=== PATIENT | male | born 1970 | race Two or more races ===

== ENCOUNTER 2020-06-08 11:01 | Emergency (ER) | payer SELFPAY ==
--- NOTE | 2020-06-08 11:17 | ER Document Report ---
ED Medical Screen (RME) - General Chief Complaint: Alcohol Withdrawl Stated Complaint: ETOH WITHDRAWAL Time Seen by Provider: 06/08/20 11:12 Primary Care Provider: SHAHLA DE LEÓN [Primary Care Provider] - Follow up as needed Mode of Arrival: Ambulatory Information source: Patient Notes: 50-year-old male patient with alcoholism presenting to the emergency department with concern for all over body aches and vomiting. Patient and family member concerned he may be going through alcohol withdrawals. He last drank yesterday. He tried to having a beer this morning however he vomited it up. Patient has never been through alcohol withdrawal before however he has never tried to quit drinking until now. Patient reports he would like to quit drinking. Patient has never had a seizure. Patient is alert, oriented, no acute distress noted. I have greeted and performed a rapid initial assessment of this patient. A comprehensive ED assessment and evaluation of the patient, analysis of test results and completion of the medical decision making process will be conducted by additional ED providers. I have specifically instructed the patient or family members with the patient to immediately return to any nursing staff should anything change in the patient's condition or with their chief complaint. - Related Data Allergies/Adverse Reactions: No Known Allergies Allergy (Unverified 06/08/20 11:11) Physical Exam - Vital signs Vitals: Temp Pulse Resp BP Pulse Ox 98.7 F 96 20 111/82 97 06/08/20 11:11 06/08/20 11:11 06/08/20 11:11 06/08/20 11:11 06/08/20 11:11 Course - Vital Signs Vital signs: Temp Pulse Resp BP Pulse Ox 98.7 F 96 20 111/82 97 06/08/20 11:11 06/08/20 11:11 06/08/20 11:11 06/08/20 11:11 06/08/20 11:11 Doctor's Discharge - Discharge Referrals: SHAHLA DE LEÓN [Primary Care Provider] - Follow up as needed
[2020-06-08 11:42] LABS: ABSOLUTE LYMPHOCYTES (AUTO) 0.9 10^3/uL (0.5-4.7); ABSOLUTE MONOCYTES (AUTO) 0.6 10^3/uL (0.1-1.4); ABSOLUTE NEUT (AUTO) 4.1 10^3/uL (1.7-8.2); BASOPHILS % (AUTO) 0.2 % (0-2); EOSINOPHILS % (AUTO) 0.2 % (0-6); HEMATOCRIT 45.3 % (37.9-51.0); HEMOGLOBIN 16.2 g/dL (13.5-17.0); LYMPHOCYTES % (AUTO) 15.5 % (13-45); MEAN CORPUSCULAR HEMOGLOBIN 36.8 pg (27.0-33.4); MEAN CORPUSCULAR HGB CONC 35.9 g/dL (32.0-36.0); MEAN CORPUSCULAR VOLUME 103 fl (80-97); MONOCYTES % (AUTO) 11.4 % (3-13); PLATELET COUNT 150 10^3/uL (150-450); RED BLOOD COUNT 4.41 10^6/uL (4.35-5.55); RED CELL DISTRIBUTION WIDTH 12.6 % (11.5-14.0); SEGMENTED NEUTROPHILS % (AUTO) 72.7 % (42-78); TOTAL CELLS COUNTED % (AUTO) 100 %; WHITE BLOOD COUNT 5.6 10^3/uL (4.0-10.5)
[2020-06-08 11:46] LABS: APPEARANCE,URINE SLIGHTLY-CLOUDY; BILIRUBIN,URINE NEGATIVE (NEGATIVE); GLUCOSE, URINE NEGATIVE (NEGATIVE); KETONES,URINE 20 mg/dL (NEGATIVE); LEUKOCYTE ESTERASE,URINE NEGATIVE (NEGATIVE); NITRITE,URINE NEGATIVE (NEGATIVE); PROTEIN,URINE 100 mg/dL (NEGATIVE); URINE SPECIFIC GRAVITY 1.035
[2020-06-08 11:47] LABS: COLOR,URINE ORANGE
[2020-06-08 12:05] LABS: ALCOHOL < 10 mg/dL (NONE DETECTED); ALKALINE PHOSPHATASE 115 U/L (38-126); ANION GAP 14 (5-19); ASPARTATE AMINO TRANSFERASE 136 U/L (17-59); BILIRUBIN,DIRECT 0.9 mg/dL (0.0-0.4); BILIRUBIN,TOTAL 2.7 mg/dL (0.2-1.3); BLOOD UREA NITROGEN 29 mg/dL (7-20); CALCIUM 10.8 mg/dL (8.4-10.2); CARBON DIOXIDE 31 mmol/L (22-30); CHLORIDE 89 mmol/L (98-107); GLUCOSE 123 mg/dL (75-110); POTASSIUM 4.1 mmol/L (3.6-5.0); TOTAL PROTEIN 8.8 g/dL (6.3-8.2)
[2020-06-08] MEDS ORDERED: RINGERS SOLUTION,LACTATED 1,000 ML IV ONE (12:08)
--- NOTE | 2020-06-08 12:12 | ER Document Report ---
ED Substance Abuse / Acc. OD - General Chief Complaint: Alcohol Withdrawl Stated Complaint: ETOH WITHDRAWAL Time Seen by Provider: 06/08/20 11:12 Primary Care Provider: WINTER AGUIRRE MD [ACTIVE STAFF] - Follow up as needed ANDRE CARMONA MD [ACTIVE STAFF] - Follow up as needed Mode of Arrival: Ambulatory Information source: Patient Notes: 50-year-old male with no previous medical problems presents to the emergency room with his fiance who has concerns for his alcohol abuse patient admits that he started drinking at the age of 12 but did not start heavy alcohol use until he was 19. States he drinks on average a case of beer a day and at least 6 shots of hard liquor per day. Per the fianc he is feeling generalized weakness and not feeling well since yesterday. States he attempted to drink a beer this morning and immediately vomited it up. States he would like to stop drinking has never been in any kind of detox program in the past. He denies any diarrhea, denies any recent travel. Denies any COVID-19 exposure. TRAVEL OUTSIDE OF THE [place] IN LAST 30 DAYS: No - Related Data Allergies/Adverse Reactions: No Known Allergies Allergy (Verified 06/08/20 12:02) Past Medical History - General Information source: Patient, Friend - Social History Smoking Status: Current Every Day Smoker Frequency of alcohol use: Heavy Drug Abuse: None Family History: Other - Alcohol abuse, lung cancer Review of Systems - Review of Systems Constitutional: No symptoms reported EENT: No symptoms reported Cardiovascular: No symptoms reported Respiratory: No symptoms reported Gastrointestinal: Nausea, Vomiting. denies: Abdominal pain Musculoskeletal: No symptoms reported Skin: No symptoms reported Neurological/Psychological: No symptoms reported -: Yes All other systems reviewed and negative Physical Exam - Vital signs Vitals: Temp Pulse Resp BP Pulse Ox 98.7 F 96 20 111/82 97 06/08/20 11:11 06/08/20 11:11 06/08/20 11:11 06/08/20 11:11 06/08/20 11:11 - Notes Notes: GENERAL: Mild acute distress, non-toxic appearance. HEAD: Normal with no signs of head trauma. EYES: PERRLA, EOMI, conjunctiva normal, no discharge. No scleral icterus noted. EARS: Hearing grossly intact. NOSE: Normal. THROAT: Oropharynx is normal. NECK: Normal range of motion, no tenderness, supple, no lymphadenopathy, No edilson nopathy, no JVD. CHEST: Clear breath sounds bilaterally. No wheezes, rales, or rhonchi. CARDIAC: Regular rate and rhythm. S1 and S2, without murmurs, gallops, or rubs. VASCULAR: No Edema. Peripheral pulses normal and equal in all extremities. ABDOMEN: Normal and soft with no tenderness, no masses or pulsatile masses. No organomegaly. Positive bowel sounds x4. No CVA tenderness noted bilaterally. GASTROINTESTINAL: Bowel sounds normal LYMPATHTIC: No lymphadenopathy noted. MUSCULOSKELETAL: Good range of motion of all major joints. Extremities without clubbing, cyanosis or edema. NEUROLOGICAL: Alert and oriented x 3. No focal sensory or strength deficits. Speech normal. Follows commands appropriately. PSYCHIATRIC: Normal Affect, judgement and mood. SKIN: Normal appearance with no rashes or lesions. No jaundice Course - Re-evaluation Re-evalutation: 06/08/20 12:10 Reviewed lab results with patient and fianc patient is currently stable no signs of active DTs. IV fluids were ordered for dehydration, aware of need for abdominal ultrasound secondary to elevated liver enzymes. 06/08/20 14:44 Patient is resting comfortably he is pain-free on exam. He is afebrile, nontoxic-appearing, reviewed all lab and ultrasound results at length with patient and his fiance. Have also spoken with [facility] who is agreeable to speak with them about possibly going to [facility] for detox. They were also counseled on the importance of outpatient follow-up with a primary care physician as well as a game moderator for his fatty infiltrate and/or cirrhosis of the liver. Discussed the importance of alcohol cessation. He will be provided with on-call physicians for follow-up. Patient and fianc state they will go over to [facility] at this time for detox. Patient was given strict retur n to the emergency room guidelines. Return for any new or worsening symptoms. All questions were answered. Patient verbalized understanding and agrees with plan of care. 06/08/20 15:00 - Vital Signs Vital signs: Temp Pulse Resp BP Pulse Ox 98.7 F 96 17 136/86 H 99 06/08/20 11:11 06/08/20 11:11 06/08/20 15:01 06/08/20 15:00 06/08/20 15:01 - Laboratory Result Diagrams: 06/08/20 11:25 06/08/20 11:25 Laboratory results interpreted by me: 06/08/20 06/08/20 06/08/20 11:25 11:25 11:25 MCV 103 H MCH 36.8 H Sodium 133.8 L Chloride 89 L Carbon Dioxide 31 H BUN 29 H Glucose 123 H Calcium 10.8 H Total Bilirubin 2.7 H Direct Bilirubin 0.9 H AST 136 H ALT 102 H Total Protein 8.8 H Lipase 303.8 H Urine Protein 100 H Urine Ketones 20 H Urine Urobilinogen 2.0 H Urine Ascorbic Acid 40 H - Diagnostic Test Radiology reviewed: Reports reviewed - EKG Interpretation by Me EKG shows normal: Sinus rhythm Additional EKG results interpreted by me: 06/08/20 15:03 EKG was interpreted by ER physician Dr. Hernandez No acute STEMI Normal sinus rhythm Rate of [address] wave abnormalities No previous EKGs for comparison. Discharge - Discharge Clinical Impression: Alcohol abuse, Elevated liver enzymes, Fatty infiltration of liver Cirrhosis of liver Qualifiers: Hepatic cirrhosis type: alcoholic cirrhosis Ascites presence: without ascites Qualified Code(s): K70.30 - Alcoholic cirrhosis of liver without ascites Condition: Stable Disposition: HOME, SELF-CARE Instructions: Chronic Alcoholism ([facility]), Cirrhosis ([facility]), Liver Function Abnormality ([facility]) Additional Instructions: Is imperative that you follow-up outpatient with a primary care physician as well as a game moderator. It is also important and imperative that you stop the use of alcohol. You have been referred to [facility] for detox. Return to the emergency room for any new or worsening symptoms. Referrals: WINTER AGUIRRE MD [ACTIVE STAFF] - Follow up as needed ANDRE CARMONA MD [ACTIVE STAFF] - Follow up as needed
--- NOTE | 2020-06-08 14:02 | RADIOLOGY REPORT (SQ) ---
EXAM DESCRIPTION: U/S ABDOMEN COMPLETE W/DOPPLER IMAGES COMPLETED DATE/TIME: 06/08/2020 1:50 pm REASON FOR STUDY: elevated LFTS COMPARISON: None TECHNIQUE: Dynamic and static grayscale images acquired of the abdomen and recorded on PACS. Additio nal selected color Doppler and spectral images recorded. LIMITATIONS: Study limited due to acoustical interference from fat or from air in the bowel. FINDINGS: PANCREAS: Poorly seen secondary to acoustical interference from fat or from air in the bow el. No visualized masses. Duct normal caliber as seen. LIVER: Heterogenous generally increased echogenicity. No masses. No dilated ducts. LIVER VASCULATURE: Normal directional flow of the main portal vein and hepatic veins. GALLBLADDER: No stones. Normal wall thickness. No pericholecystic fluid. ULTRASOUND-DETECTED RANGEL'S SIGN: Negative. INTRAHEPATIC DUCTS AND COMMON DUCT:CBD and intrahepatic ducts normal caliber. No filling defects. INFERIOR VENA CAVA: Normal flow. AORTA: No aneurysm. RIGHT KIDNEY: Normal size. Normal echogenicity. No solid or suspicious masses. No hydronephrosis. No calcifications. LEFT KIDNEY: Normal size. Normal echogenicity. No solid or suspicious masses. No hydronephrosis. No calcifications. SPLEEN:Normal size. No solid masses. PERITONEAL AND PLEURAL SPACES: No ascites or effusions. OTHER: No other significant finding. IMPRESSION: 1. HETEROGENOUS GENERALLY INCREASED ECHOGENICITY OF THE HEPATIC PARENCHYMA. THIS MAY BE DUE TO FATTY INFILTRATION AND/OR CIRRHOSIS. NO FOCAL HEPATIC LESIONS. 2. NO OTHER SIGNIFICANT FINDING IN THE VISUALIZED ABDOMEN. TECHNICAL DOCUMENTATION: JOB ID: [id number] [employer]- All Rights Reserved Reading location - IP/workstation name: [email or web address]
[2020-06-08 15:05] VITALS: BP 136/86
--- NOTE | 2020-06-08 18:01 | EKG REPORT ---
SEVERITY:- BORDERLINE ECG - SINUS RHYTHM BORDERLINE INFERIOR Q WAVES : Confirmed by: Evan De La Paz MD 08-Jun-2020 17:59:59
== END 2020-06-08 15:36 | disposition home or self-care (01) ==
LOC: ER 11:01
DX: F10.10 Alcohol abuse, uncomplicated (principal); K70.30 Alcoholic cirrhosis of liver without ascites; E86.0 Dehydration; K76.0 Fatty (change of) liver, not elsewhere classified; R11.2 Nausea with vomiting, unspecified; R53.1 Weakness; F17.200 Nicotine dependence, unspecified, uncomplicated
CPT/HCPCS: 93005; 99285; 96360; 36415; 80307; 83690; 85025; 80053; 81001; 76700; 93976; 93010; J7120

== ENCOUNTER 2020-08-07 07:12 | Day surgery (SDC) | payer SELFPAY ==
[2020-08-07] MEDS ORDERED: PROPOFOL INJ 200 MG/20 ML VIAL IV ONE (07:23)
--- NOTE | 2020-08-07 09:05 | Operative Report ---
Operative Report DATE OF SURGERY: 08/07/20 Operative Report: The risks benefits and alternatives of the procedure explained to the patient in detail and informed consent is obtained.A GIF Olympus video scope was inserted into the patient's mouth and hypopharynx, the esophagus is identified intubated and insufflated, the scope was then advanced through the esophagus stomach and duodenum, retroflexion maneuver is done the esophagus stomach and first and second portions of the duodenum examined PREOPERATIVE DIAGNOSIS: Evaluate for possible esophageal varices given history of cirrhosis POSTOPERATIVE DIAGNOSIS: Grade 1 esophageal varices if at all. Gastritis status post biopsy OPERATION: EGD with biopsy SURGEON: WINTER AGUIRRE ANESTHESIA: LMAC TISSUE REMOVED OR ALTERED: As noted above. COMPLICATIONS: None. ESTIMATED BLOOD LOSS: None. INTRAOPERATIVE FINDINGS: As noted above. PROCEDURE: Patient tolerated the procedure well. No immediate postprocedure complications are noted. Patient is discharged in good condition. Discharge date 08/07/2020. Discharge diet: Regular. Discharge activity: Regular. 2 to 3-week follow-up to discuss findings. Patient is instructed to call the office or proceed to the emergency room should there be any further problems or questions. Wait on the pathology.
[2020-08-07 09:35] VITALS: BP 108/74
== END 2020-08-07 09:40 | disposition home or self-care (01) ==
LOC: END 07:12
PROVIDERS: ATTEND Internal Medicine Gastroenterology
DX: K29.50 Unspecified chronic gastritis without bleeding (principal); I85.00 Esophageal varices without bleeding; Z20.828 Contact with and (suspected) exposure to other viral communicable diseases; F17.210 Nicotine dependence, cigarettes, uncomplicated
CPT/HCPCS: 43239; 88305 ×2; 00731; J2704; 731